=== PATIENT | female | born 1980 | race Caucasian/White ===

== ENCOUNTER 2023-07-11 18:13 | Emergency (ER) | payer BC, SELFPAY ==
[2023-07-11 18:26] VITALS: BP 166/81; PULSE 166; RESP 16; TEMP 36.9; O2SAT 100
--- NOTE | 2023-07-11 18:53 | ED.GENADULT ---
HPI - General Adult General Chief complaint: Wound/Laceration Stated complaint: Cut Finger Lt Hand Time Seen by Provider: 07/11/23 18:53 Source: patient Mode of arrival: ambulatory Limitations: no limitations History of Present Illness HPI narrative: 42-year-old female presents to clinic today with a laceration to the left distal index finger palm side. Laceration is approximately 1.5cm in length and well approximated. patient states she cut it while cleaning a knife after cutting birthday cake. Patient rinsed it initially with hydrogen peroxide at home, place gauze and a Band-Aid on it and headed to the urgent care. Related Data Home Medications Medication Instructions Recorded Confirmed drospirenone 3 mg-ethinyl tablet 07/11/23 estradiol 0.03 mg tablet ([place]) Allergies Allergy/AdvReac Type Severity Reaction Status Date / Time No Known Allergies Allergy Verified 07/11/23 18:34 Review of Systems Review of Systems: CONSTITUTIONAL: Denies fever, chills, or sweats. EYES: Denies visual changes, redness, or discharge. ENT: Denies rhinorrhea, congestion, sore throat, or otalgia. CARDIOVASCULAR: Denies chest pain, palpitations, or edema. RESPIRATORY: Denies cough or dyspnea. GASTROINTESTINAL: Denies abdominal pain, nausea, vomiting, or diarrhea. GENITOURINARY: Denies dysuria or hematuria. SKIN: Denies rash or itching. positive laceration to the left index finger. MUSCULOSKELETAL: Denies back pain, joint pain, or myalgia. NEUROLOGIC: Denies headache, numbness, or weakness. PSYCHIATRIC: Denies anxiety or depression. [facility] Past Medical History Medical History (Updated 07/11/23 @ 19:20 by RAVINDER Acosta) No significant past medical history Comments At the time of my signature I agree with nursing past medical history, surgical, social, and family history. There is no relevant family history pertinent to the presenting complaint. Exam Narrative: GENERAL: Well-appearing, well-nourished, and in no acute distress. HEAD: Normocephalic, atraumatic. EYES: PERRLA and EOMI. ENT: Nares clear, no rhinorrhea or epistaxis. Mucous membranes moist. NECK: Supple. No lymphadenopathy CHEST: Clear to auscultation. No respiratory distress. HEART: Regular rate and rhythm. No murmur heard. Normal peripheral pulses. ABDOMEN: Soft, nontender, nondistended, normal active bowel sounds. EXTREMITIES: Normal range of motion. No edema. SKIN: Warm, dry, no rash. 1.5 cm length linear laceration to the palm side of the left distal index finger that is well approximated without signs of foreign bodies and free of purulent drainage. distal motor neurovascular status intact as evidence by intact sensation to touch. Patient has full range of motion fingers. NEURO: No focal deficits. Alert and oriented x3. Course Course Level of Care: Express Care Visit Vital Signs Vital signs: Vital Signs Temperature 36.9 C 07/11/23 18:26 Pulse Rate 166 H 07/11/23 18:26 Respiratory Rate 16 07/11/23 18:26 Blood Pressure 166/81 H 07/11/23 18:26 Pulse Oximetry 100 07/11/23 18:26 Oxygen Delivery Room Air 07/11/23 18:26 Temperature 36.9 C 07/11/23 18:26 Pulse Rate 82 07/11/23 19:00 Respiratory Rate 16 07/11/23 18:26 Blood Pressure 152/80 H 07/11/23 19:00 Pulse Oximetry 100 07/11/23 19:00 Oxygen Delivery Room Air 07/11/23 19:00 vital signs reviewed. The patient has been informed that they may have pre-hypertension or Hypertension based on a BP reading in the department. I recommend that the patient call the primary care provider listed on their discharge instructions or a physician of their choice this week to arrange follow up for further evaluation of possible pre-hypertension or Hypertension Procedures Laceration Laceration 1: Date: 07/11/23 Time: 19:00 Site: other (Left index finger) Side (If applicable): left Size (cm): 1.5 Description: harry
[2023-07-11 19:00] VITALS: BP 152/80; PULSE 82; O2SAT 100
== END 2023-07-11 19:19 | disposition home or self-care (01) ==
PROVIDERS: Emergency Provider Nurse Practitioner Family
DX: S61.211A Laceration without foreign body of left index finger without damage to nail, initial encounter (principal); W26.0XXA Contact with knife, initial encounter
CPT/HCPCS: 12001; 99212; G0463